=== PATIENT | male | born 1990 | race African-American/Black ===

== ENCOUNTER 2016-08-08 20:51 | Emergency (ER) | payer MEDICAID ==
[~2016-08-08 20:51] MED LIST: CIPROFLOXACIN OS; FLEXERIL10 MG PO; NO MEDICATIONS; TYLENOL #3 PO
== END 2016-08-08 22:40 | disposition home or self-care (01) ==
LOC: CED 20:51
DX: Z53.21 Procedure and treatment not carried out due to patient leaving prior to being seen by health care provider (principal)